=== PATIENT | male | born 1965 | race Caucasian/White ===

== ENCOUNTER 2017-03-16 10:55 | Day surgery (SDC) | payer BC ==
[2017-03-12 16:11] VITALS: BMI 32.6
[2017-03-16 11:16] VITALS: RESP 16; TEMP 98
[2017-03-16] MEDS ORDERED: LIDOCAINE 1% 20 ML VIAL (10MG/ML) FOR IV START INTRADERMA ONE (11:35)
[2017-03-16] MEDS: LACTATED RINGERS 1,000 ML IV SCH ×2 (11:35→12:25)
[2017-03-16] MEDS ORDERED: PROPOFOL 10 MG/ML 20 ML VIAL IV ONE (12:27)
--- NOTE | 2017-03-16 12:43 | P.GSHP ---
History of Present Illness H&P Date: 03/16/17 Chief Complaint: History of colon polyps 's is a 51-year-old male referred from Dr. hsu. Patient had previous colonoscopy 3 years ago. Found have benign adenomatous polyps. He presents today for colonoscopy. Past Medical History Past Medical History: Hypertension Additional Past Medical History / Comment(s): SPONTANEOUS RIGHT PNEUMOTHORAX IN 1990. History of Any Multi-Drug Resistant Organisms: None Reported Additional Past Surgical History / Comment(s): COLONOSCOPY. CHEST TUBE INSERTION. Past Anesthesia/Blood Transfusion Reactions: No Reported Reaction Additional Past Anesthesia/Blood Transfusion Reaction / Comment(s): HAS NEVER HAD GENERAL ANESTHESIA. Smoking Status: Former smoker - Past Family History Brother(s) Family Medical History: Cancer Additional Family Medical History / Comment(s): LIVER CA, BLADDER CANCER Sister(s) Family Medical History: Cancer Additional Family Medical History / Comment(s): BREAST CA Medications and Allergies Home Medications Medication Instructions Recorded Confirmed Type Metoprolol Tartrate [Lopressor] 100 mg PO 0900 01/11/15 03/12/17 History Aspirin 81 mg PO DAILY 03/12/17 03/12/17 History Metoprolol Tartrate [Lopressor] 50 mg PO 2100 03/12/17 03/12/17 History Multivitamin [Men's Multi-Vitamin] 1 each PO DAILY 03/12/17 03/12/17 History Allergies Allergy/AdvReac Type Severity Reaction Status Date / Time No Known Allergies Allergy Verified 03/16/17 11:18 Surgical - Exam Vital Signs Temp Pulse Resp BP Pulse Ox 98.0 F 74 16 166/90 97 03/16/17 11:15 03/16/17 11:15 03/16/17 11:15 03/16/17 11:15 03/16/17 11:15 - General well developed, no distress - Eyes PERRL - ENT normal pinna - Neck no masses - Respiratory normal expansion - Cardiovascular Rhythm: regular - Abdomen Abdomen: soft, non tender Assessment and Plan Plan: History of colon polyps. We'll perform colonoscopy.
--- NOTE | 2017-03-16 12:55 | P.OP ---
Date of Procedure: 03/16/17 Preoperative Diagnosis: History of colon polyps Postoperative Diagnosis: Normal colonoscopy Procedure(s) Performed: Colonoscopy Implants: Anesthesia: MAC Surgeon: Can Verde Pathology: none sent Condition: stable Indications for Procedure: Operative Findings: Description of Procedure: PROCEDURE: The patient was placed on the endoscopy table in the lateral position. Digital rectal examination was performed which revealed no abnormalities. The prostate was symmetrical without nodules. Flexible colonoscope was then placed in the patient's anus and passed throughout the entire colon. The ileocecal valve was visualized. The cecum, ascending, transverse, descending and sigmoid colon were normal. The rectum was normal as well. There were no masses, polyps or diverticula noted in the entire colon. SUMMARY OF FINDINGS: Normal colonoscopy.
[2017-03-16 13:31] VITALS: BP 119/79; PULSE 66
== END 2017-03-16 13:43 | disposition home or self-care (01) ==
LOC: ORWHC2ENDO 10:55
PROVIDERS: ATTEND Surgery
DX: Z12.11 Encounter for screening for malignant neoplasm of colon (principal); Z86.010 Personal history of colon polyps; I10 Essential (primary) hypertension; Z87.891 Personal history of nicotine dependence; Z79.82 Long term (current) use of aspirin; Z79.899 Other long term (current) drug therapy
CPT/HCPCS: J2704; G0105; 45378

== ENCOUNTER 2022-01-06 12:00 | Day surgery (SDC) | payer BC ==
[2022-01-03 08:28] VITALS: BMI 32.6
[~2022-01-06 12:00] MED LIST: LACTATED RINGERS 1,000 ML IV SCH; LIDOCAINE 1% (10MG/ML) FOR IV START INTRADERMA PRN
[2022-01-06 12:54] VITALS: TEMP 97.8
[2022-01-06] MEDS ORDERED: PROPOFOL 10 MG/ML 20 ML VIAL IV ONE (13:35)
--- NOTE | 2022-01-06 13:41 | P.GSHP ---
History of Present Illness H&P Date: 01/06/22 Chief Complaint: History of colon polyps This a 56-year-old male who presents today for colonoscopy. Patient appears history of colon polyps. Past Medical History Past Medical History: Hearing Disorder / Deafness, Hypertension, Sleep Apnea/CPAP/BIPAP Additional Past Medical History / Comment(s): HX SPONTANEOUS RIGHT PNEUMOTHORAX IN 1990. CPAP use. [place] in right ear. History of Any Multi-Drug Resistant Organisms: None Reported Past Surgical History: Ear Surgery Additional Past Surgical History / Comment(s): COLONOSCOPY. CHEST TUBE INSERTION. TUBE IN RIGHT EAR. Past Anesthesia/Blood Transfusion Reactions: No Reported Reaction Additional Past Anesthesia/Blood Transfusion Reaction / Comment(s): HAS NEVER HAD GENERAL ANESTHESIA. Past Psychological History: No Psychological Hx Reported Smoking Status: Former smoker Past Alcohol Use History: Occasional Additional Past Alcohol Use History / Comment(s): STARTED SMOKING AT AGE 15, QUIT IN 1990, SMOKED 1PPD. Past Drug Use History: None Reported - Past Family History Mother Family Medical History: Cancer Additional Family Medical History / Comment(s): LUNG CANCER. Brother(s) Family Medical History: Cancer Additional Family Medical History / Comment(s): LIVER CANCER, BLADDER CANCER. Sister(s) Family Medical History: Cancer Additional Family Medical History / Comment(s): BREAST CANCER. Medications and Allergies Home Medications Medication Instructions Recorded Confirmed Type Metoprolol Tartrate [Lopressor] 100 mg PO HS 01/11/15 01/06/22 History Metoprolol Tartrate [Lopressor] 50 mg PO QAM 03/12/17 01/06/22 History Multivitamin [Men's Multi-Vitamin] 1 each PO DAILY 03/12/17 01/06/22 History Ofloxacin [Ofloxacin 0.3% Otic 5 drops RIGHT EAR BID 01/03/22 01/06/22 History Soln] Allergies Allergy/AdvReac Type Severity Reaction Status Date / Time No Known Allergies Allergy Verified 01/06/22 12:50 Surgical - Exam Vital Signs Temp Pulse Resp BP Pulse Ox 97.8 F 81 17 164/86 98 01/06/22 12:53 01/06/22 12:53 01/06/22 12:53 01/06/22 12:53 01/06/22 12:53 - General well developed, well nourished, no distress - Eyes PERRL - ENT normal pinna - Neck no masses - Respiratory normal expansion - Cardiovascular Rhythm: regular - Abdomen Abdomen: soft, non tender Assessment and Plan Assessment: History of colon polyps. We'll perform colonoscopy.
--- NOTE | 2022-01-06 14:03 | P.OP ---
Date of Procedure: 01/06/22 Preoperative Diagnosis: History of colon polyps Postoperative Diagnosis: Colon polyps Procedure(s) Performed: Colonoscopy Anesthesia: MAC Surgeon: Can Verde Pathology: other (Rectal polyp, transverse colon polyp) Condition: stable Disposition: PACU Description of Procedure: The patient's placed on the endoscopy table in the lateral position. He received IV sedation. Digital rectal exam was performed which revealed no ebonized. Flexible colonoscope was then placed patient anus and passed throu ghout the entire colon. The ileocecal valve was visualized. Cecum appeared normal. The ascending colon all. In the proximal transverse colon polyp was seen was removed with the cold forcep. The remainder the transverse colon and descending colon appeared normal. In the; a few scattered diverticula. In the rectum there was a small polyp seen was removed accommodation of the cold forcep and snare. Copious withdrawn for patient.
[2022-01-06 14:09] VITALS: RESP 16
[2022-01-06 14:26] VITALS: BP 138/90; PULSE 70
== END 2022-01-06 14:36 | disposition home or self-care (01) ==
LOC: ORWHC2ENDO 12:00
PROVIDERS: ATTEND Surgery
DX: Z12.11 Encounter for screening for malignant neoplasm of colon (principal); D12.3 Benign neoplasm of transverse colon; K62.1 Rectal polyp; K57.30 Diverticulosis of large intestine without perforation or abscess without bleeding; Z86.010 Personal history of colon polyps; I10 Essential (primary) hypertension; G47.33 Obstructive sleep apnea (adult) (pediatric); Z87.891 Personal history of nicotine dependence; Z79.899 Other long term (current) drug therapy
CPT/HCPCS: 88305; 45380; 45385; J2704

== ENCOUNTER 2023-12-17 07:49 | Day surgery (SDC) | payer BC ==
[2023-12-15 13:05] VITALS: BMI 31.1
[~2023-12-17 07:49] MED LIST changes: -LACTATED RINGERS 1,000 ML IV SCH
[2023-12-17] MEDS: LACTATED RINGERS 1,000 ML IV SCH (08:16)
[2023-12-17 08:22] VITALS: RESP 16; TEMP 96.8
[2023-12-17] MEDS ORDERED: PROPOFOL 10 MG/ML 20 ML VIAL IV ONE (08:58)
--- NOTE | 2023-12-17 09:01 | P.GSHP ---
History of Present Illness H&P Date: 12/17/23 Chief Complaint: history of colon polyps this is a 58-year-old male with history of colon polyps. Patient presents today for colonoscopy. Past Medical History Past Medical History: Hearing Disorder / Deafness, Hypertension, Sleep Apne a/CPAP/BIPAP Additional Past Medical History / Comment(s): HX SPONTANEOUS RIGHT PNEUMOTHORAX IN 1990. CPAP use. History of Any Multi-Drug Resistant Organisms: None Reported Past Surgical History: Ear Surgery Additional Past Surgical History / Comment(s): COLONOSCOPY. CHEST TUBE INSERTION. TUBE IN RIGHT EAR. Past Anesthesia/Blood Transfusion Reactions: No Reported Reaction Additional Past Anesthesia/Blood Transfusion Reaction / Comment(s): . Past Psychological History: No Psychological Hx Reported Smoking Status: Former smoker Past Alcohol Use History: Occasional Additional Past Alcohol Use History / Comment(s): STARTED SMOKING AT AGE 15, QUIT IN 1990, SMOKED 1PPD. Past Drug Use History: None Reported - Past Family History Mother Family Medical History: Cancer Additional Family Medical History / Comment(s): LUNG CANCER. Brother(s) Family Medical History: Cancer Additional Family Medical History / Comment(s): LIVER CANCER, BLADDER CANCER. Sister(s) Family Medical History: Cancer Additional Family Medical History / Comment(s): BREAST CANCER. Medications and Allergies Home Medications Medication Instructions Recorded Confirmed Type Metoprolol Tartrate [Lopressor] 100 mg PO HS 01/11/15 12/17/23 History Metoprolol Tartrate [Lopressor] 50 mg PO QAM 03/12/17 12/17/23 History Allergies Allergy/AdvReac Type Severity Reaction Status Date / Time No Known Allergies Allergy Verified 12/17/23 08:04 Surgical - Exam Vital Signs Temp Pulse Resp Pulse Ox 96.8 F L 65 16 99 12/17/23 08:07 12/17/23 08:07 12/17/23 08:07 12/17/23 08:07 - General well developed, well nourished, no distress - Eyes PERRL - ENT normal pinna - Neck no masses - Respiratory normal expansion - Cardiovascular Rhythm: regular - Abdomen Abdomen: soft, non tender Assessment and Plan Assessment: history: Loss. We'll perform colonoscopy.
[2023-12-17] MEDS: IV FLUID CONTINUATION 1,000 ML IV ONE (09:21)
--- NOTE | 2023-12-17 09:22 | P.OP ---
Date of Procedure: 12/17/23 Preoperative Diagnosis: history of colon polyps Postoperative Diagnosis: amultiple colon polyps Procedure(s) Performed: ecolonoscopy Anesthesia: MAC Surgeon: Can Verde Pathology: none sent Condition: stable Disposition: PACU Description of Procedure: the patient's placed on the endoscopy table in the lateral position. He received IV sedation. Digital rectal exam performed. The flexible colonoscope was then placed patient in the patient's anus passed throughout the colon. The ileocecal valve was not visualized with tortuosity valve. Several attempts were made to make enter the ileocecal valve was some possible. Scope was withdrawn. In the right colon there was a small polyp was removed accommodation snare and forcep. At the hepatic flexure there was another polyp seen was removed with snare. Scope brought back and there was another polyp seen in the proximal transverse colon which was removed with the snare. Scope was withdrawn the remaining transverse colon and descending colon appeared normal. In the sigmoid colon there is another polyp seen this removed with a forcep. Scope was brought back the rectum this appeared normal. Scope withdrawn for patient.
[2023-12-17 10:13] VITALS: BP 129/78; PULSE 69
== END 2023-12-17 09:51 | disposition home or self-care (01) ==
LOC: ORWHC2ENDO 07:49
PROVIDERS: ATTEND Surgery
DX: Z12.11 Encounter for screening for malignant neoplasm of colon (principal); D12.3 Benign neoplasm of transverse colon; D12.2 Benign neoplasm of ascending colon; I10 Essential (primary) hypertension; G47.33 Obstructive sleep apnea (adult) (pediatric); F10.90 Alcohol use, unspecified, uncomplicated; Z86.010 Personal history of colon polyps; Z87.891 Personal history of nicotine dependence; Z80.1 Family history of malignant neoplasm of trachea, bronchus and lung; Z80.0 Family history of malignant neoplasm of digestive organs; Z80.3 Family history of malignant neoplasm of breast; Z79.899 Other long term (current) drug therapy
CPT/HCPCS: 88305; 45380; 45385; J2704

== ENCOUNTER → 2024-01-21 | Outpatient (CLI) | payer BC ==
[2024-01-21 14:56] LABS: Anion Gap 14.7 mmol/L (4.00-12.00); Carbon Dioxide 25.3 mmol/L (21.6-31.8); Potassium 4.4 mmol/L (3.5-5.5)
[2024-01-21 14:59] LABS: Basophils # (A) 0.05 X 10*3/uL (0.00-0.10); Basophils % (A) 0.8 %; Eosinophils # (A) 0.19 X 10*3/uL (0.04-0.35); Eosinophils % (A) 3.2 %; HGB 14.5 g/dL (13.0-17.0); Lymphocytes % (A) 33.2 %; MCH 28.7 pg (27.0-32.0); MCV 87.1 FL (80.0-97.0); Mean Platelet Volume 10.5 FL (9.5-12.2); Monocytes # (A) 0.56 X 10*3/uL (0.20-1.00); Monocytes % (A) 9.3 %; NRBC Per 100 WBC 0 X 10*3/uL (0.00-0.01); Neutrophils # (A) 3.19 X 10*3/uL (1.80-7.70); Neutrophils % (A) 52.8 %; Platelet Count 212 X 10*3/uL (140-440); RBC 5.05 X 10*6/uL (4.40-5.60); RDW 13.3 % (11.5-14.5); WBC 6.03 X 10*3/uL (4.50-10.00)
== END | disposition home or self-care (01) ==
LOC: LABPAT 09:29
PROVIDERS: ATTEND Surgery
DX: Z01.818 Encounter for other preprocedural examination (principal); C18.9 Malignant neoplasm of colon, unspecified
CPT/HCPCS: 80051; 85025; 86850; 86900; 86901; 93005

== ENCOUNTER 2024-01-25 07:30 | Inpatient (IN) | payer BC ==
[2024-01-21 11:53] VITALS: BMI 31.1
[~2024-01-25 07:30] MED LIST changes: -LIDOCAINE 1% (10MG/ML) FOR IV START INTRADERMA PRN; +metroNIDAZOLE-NS PMX 500 MG in SALINE 1 100ML.BAG IVPB PRN
[2024-01-25] MEDS ORDERED: droPERidol 5 MG/2 ML VIAL IVP PRN (08:37)
[2024-01-25] MEDS ORDERED: LIDOCAINE 1% (10MG/ML) FOR IV START INTRADERMA PRN (08:37)
[2024-01-25] MEDS: IV FLUID CONTINUATION 1,000 ML IV ONE (09:21)
[2024-01-25] MEDS: LACTATED RINGERS 1,000 ML IV SCH (09:30)
[2024-01-25] MEDS: ONDANSETRON 4 MG/2 ML VIAL IVP ONE (09:30)
[2024-01-25] MEDS: DEXAMETHASONE SOD PHOSPHATE 4 MG/ML 1 ML VIAL IV ONE (09:30)
[2024-01-25] MEDS: MIDAZOLAM 2 MG/2 ML VIAL IVP ONE (09:34)
[2024-01-25] MEDS ORDERED: NALOXONE 0.4 MG/ML 1 ML VIAL IV PRN (09:55)
--- NOTE | 2024-01-25 09:55 | P.ANPRN ---
Procedure Note - Anesthesia - Epidural/Spinal Epidural Continuous Time Out Performed: Yes Date of Procedure: 01/25/24 Procedure Start Time: 09:33 Procedure Stop Time: 09:40 Location of Patient: PreOp Indication: Acute Post-Operative Pain, Analgesia, Requested by Surgeon Sedation Type: Sedate with meaningful contact maintained Preparation: Sterile Prep Position: Sitting Catheter: Indwelling Needle Guage: 18 Narrative: Test dose with 4 ml 1.5%lidocaine with Epi. Negative S/S Blood Aspirated: No Pain Paresthesia on Injection Noted: No Events: Uneventful and Well Tolerated
[2024-01-25] MEDS: ACETAMINOPHEN TAB 500 MG TAB PO ONE (10:02)
[2024-01-25] MEDS: ALVIMOPAN 12 MG CAPSULE PO ONE (10:05)
[2024-01-25] MEDS ORDERED: PROPOFOL 10 MG/ML 20 ML VIAL IV ONE (11:41)
[2024-01-25] MEDS ORDERED: SUCCINYLCHOLINE CHLORIDE 200 MG/10 ML VIAL IV ONE (11:41)
[2024-01-25] MEDS ORDERED: SUGAMMADEX SODIUM 200 MG/2 ML SDV IV ONE (11:41)
[2024-01-25] MEDS ORDERED: fentaNYL (PF) 50 MCG/ML 2 ML AMP ONE (11:41)
[2024-01-25] MEDS ORDERED: MIDAZOLAM 2 MG/2 ML VIAL ONE (11:41)
[2024-01-25] MEDS ORDERED: ROCURONIUM 10 MG/ML (5 ML VIAL) IV ONE (11:41)
[2024-01-25] MEDS: LACTATED RINGERS 1,000 ML IV ONE (12:26)
[2024-01-25] MEDS ORDERED: ONDANSETRON 4 MG/2 ML VIAL IVP PRN (13:00)
--- NOTE | 2024-01-25 13:00 | P.OP ---
Date of Procedure: 01/25/24 Preoperative Diagnosis: colon cancer Postoperative Diagnosis: colon cancer Procedure(s) Performed: right hemicolectomy Repair of ventral hernia 4 cm Anesthesia: NANCY Surgeon: Can Verde Estimated Blood Loss (ml): 5 Pathology: other (right hemicolectomy) Condition: stable Disposition: PACU Description of Procedure: the patient's placed on the operating table in the supine position. He received general endotracheal tube anesthesia. His abdomen was prepped and draped usual fashion. A midline skin incision was made. And the abdomen was entered. The patient had a ventral hernia located just above the umbilicus. It measured prostate 4 cm diameter. The abdominal cavity entered. The Bookwalter retractors placed a wound. Then explored. Liver appeared normal. There were no obvious masses palpated in the right or transverse colon. the remainder of the colon appeared normal. At this pointthe white line of Toldt's was divided using left cautery on the right colon was mobilized. The hepatic flexure was mobilized using the Harmonic scissors. And then the omentum was taken off of the transverse colon. The terminal ileum was mobilized. And then the terminal ileum was transected with a GI stapler. And then the distal transverse colon was transected with a GI stapler. Using the LigaSure device the mesentery of the bowel was divided. The specimen sent to pathology. A lbci-cl-sayl functional end-to-end staple anastomosis created using HOLLIS and TA staplers. 3-0 GI silk sutures using a crotch stitch. The abdomen was irrigated there is no bleeding seen. The fascia was then closed loop #1 PDS suture. The hernia was repaired during fascial closure. The skin was stapled. sterile dressings was applied. Patient tolerated procedure well. He was sent to recovery room in stable condition.
[2024-01-25] MEDS: ROPIVACAINE 250 MG, HYDROMORPHONE (PF) 5 MG in SODIUM CHLORIDE 0.9% 200 ML EPIDURAL PRN (13:13)
[2024-01-25] MEDS: HYDROmorphone 0.5 MG/0.5 ML SYRINGE IVP PRN (13:21)
[2024-01-25 15:21] LABS: Basophils # (A) 0.1 k/uL (0-0.2); Basophils % (A) 0 %; Eosinophils % (A) 0 %; HCT 46.2 % (39.0-53.0); HGB 14.7 gm/dL (13.0-17.5); Lymphocytes # (A) 0.8 k/uL (1.0-4.8); Lymphocytes % (A) 5 %; MCH 28.3 pg (25.0-35.0); MCHC 31.9 g/dL (31.0-37.0); MCV 88.6 fL (80.0-100.0); Mean Platelet Volume 8.4; Monocytes # (A) 0.4 k/uL (0-1.0); Monocytes % (A) 2 %; Neutrophils # (A) 14.9 k/uL (1.3-7.7); Neutrophils % (A) 92 %; Platelet Count 212 k/uL (150-450); RBC 5.21 m/uL (4.30-5.90); RDW 13.3 % (11.5-15.5); WBC 16.2 k/uL (3.8-10.6)
[2024-01-25] MEDS: HEPARIN SODIUM,PORCINE 5,000 UNIT/ML 1 ML VIAL SQ SCH (17:24)
[2024-01-25] MEDS: D5-0.45% NACL WITH KCL 20MEQ/L 1,000 ML IV SCH (18:52)
[2024-01-25] MEDS: METOPROLOL TARTRATE 50 MG TAB PO SCH (20:08)
--- NOTE | 2024-01-26 07:47 | P.PN ---
Progress Note - Text Progress Note Date: 01/26/24 Anesthesia Postop day 1 Status post colectomy with epidural day 2 Patient seen and examined. Doing well without complaint. VAS 2 out of 10. No nausea vomiting or pruritus. Ropivacaine 0.1% with Dilaudid 20 mcg/mL at 10 cc an hour. Objective: Vital signs reviewed Lungs: Good chest excursion Abdomen: Appears nondistended Other: Epidural Site Intact without induration. Dressing intact Neuro: Left thigh heavy. Paresthesias left thigh. Assessment: Status post colectomy postop day 1 Plan: Continue current care with your medical management. Anticipate reevaluation tomorrow. Discussed with nurse to decrease rate down to 8 to see if there is improvement in the left lower extremity. If not give our department to call.
[2024-01-26] MEDS: ALVIMOPAN 12 MG CAPSULE PO SCH (08:04)
[2024-01-26] MEDS: METOPROLOL TARTRATE 50 MG TAB PO SCH (08:05)
[2024-01-26 10:41] LABS: African American GFR (CKD) >90 (>60 ml/min/1.73 sqM); Anion Gap 8 mmol/L; Blood Urea Nitrogen 9 mg/dL (9-20); Calcium 8.4 mg/dL (8.4-10.2); Carbon Dioxide 22 mmol/L (22-30); Chloride 105 mmol/L (98-107); Glucose 135 mg/dL (74-99); Non-African American GFR(CKD) >90 (>60 ml/min/1.73 sqM); Potassium 4.1 mmol/L (3.5-5.1); Sodium 135 mmol/L (137-145)
[2024-01-26 10:44] LABS: Basophils % (A) 0 %; Eosinophils # (A) 0.1 k/uL (0-0.7); Eosinophils % (A) 1 %; HCT 37.5 % (39.0-53.0); HGB 12.5 gm/dL (13.0-17.5); Lymphocytes # (A) 1.7 k/uL (1.0-4.8); Lymphocytes % (A) 16 %; MCH 29.5 pg (25.0-35.0); MCHC 33.3 g/dL (31.0-37.0); MCV 88.7 fL (80.0-100.0); Mean Platelet Volume 8.6; Monocytes % (A) 9 %; Neutrophils # (A) 8.2 k/uL (1.3-7.7); Neutrophils % (A) 74 %; Platelet Count 178 k/uL (150-450); RBC 4.23 m/uL (4.30-5.90); RDW 13.3 % (11.5-15.5); WBC 11.1 k/uL (3.8-10.6)
--- NOTE | 2024-01-26 12:48 | CONS ---
CONSULTATION REASON FOR CONSULTATION: Advice regarding hypertension and other medical issues, requested by Surgery. HISTORY OF PRESENT ILLNESS: A 58-year-old gentleman with history of colon cancer, underwent right hemicolectomy as well as repair of ventral hernia by Dr. Verde. There are no history of fever or rigors. No chest pain or palpitation at this time. The blood pressure is well maintained. PAST MEDICAL HISTORY: Reviewed, include hypertension, sleep apnea, spontaneous pneumothorax in 1990, CPAP. Rest of the history and rest of chart is also reviewed. HOME MEDICATIONS: Reviewed, include metoprolol, dose and rest of medications reviewed. ALLERGIES: None. FAMILY HISTORY: History of liver cancer and bladder cancer. SOCIAL HISTORY: Previous history of smoking. REVIEW OF SYSTEMS: A 14-point review is negative except as mentioned earlier. PHYSICAL EXAMINATION: VITAL SIGNS: Pulse 82, blood pressure 132/70, respirations 18. HEENT: Conjunctivae normal. NECK: No jugular venous distention. CARDIOVASCULAR: S1, S2. RESPIRATIONS: Breath sounds diminished at the bases. No rhonchi. No crackles. ABDOMEN: Soft, status post surgery. LEGS: No edema. NERVOUS SYSTEM: Nonfocal. LABORATORY DATA: WBC 11.1. The rest of labs are noted. ASSESSMENT: 1. Status post right hemicolectomy and repair of ventral hernia for colon cancer. 2. Hypertension. 3. Mild hyponatremia. 4. History of sleep apnea, on CPAP. 5. Spontaneous right pneumothorax history remotely. RECOMMENDATIONS AND DISCUSSION: This 58-year-old gentleman with a past medical history of multiple medical problems. At this time, I recommend to continue current management and continue symptomatic treatment. Home medications will be continued and the patient is p.o. DVT prophylaxis. We will follow the patient closely with you. Otherwise, proton pump inhibitors. Incentive spirometry. The patient may be asked to follow with primary physician closely after discharge. MMODL / IJN: [id number] /
--- NOTE | 2024-01-26 14:20 | P.PN ---
Subjective Progress Note Date: 01/26/24 CHIEF COMPLAINT: Colon cancer HISTORY OF PRESENT ILLNESS: Patient is postop day #1 status post right wilber colectomy and repair of ventral hernia 4 cm. Patient reports his pain is controlled. Epidural is in place and has been decreased to 8. He had reported some numbness in the left leg. He denies any nausea or vomiting. He did have a small amount of flatus last night. Afebrile. Mildly tachycardic improved. WBC is down from 16.2-11.1 PHYSICAL EXAM: VITAL SIGNS: Reviewed. GENERAL: Well-developed in no acute distress. ABDOMEN: Soft. Mildly distended. Incisional dressing pulled back. Dressing was saturated with blood. Incision site is clean dry and intact. NEUROLOGIC: Alert and oriented. Cranial nerves II through XII grossly intact. ASSESSMENT: 1. Colon cancer status post right hemicolectomy and repair of ventral hernia PLAN: -Abdominal dressing changed today -Continue epidural for pain control -Continue Wood catheter -Continue IV fluids. Medicine service has decreased IV fluids. -Encourage patient to use incentive spirometer -Encouraged patient to increase activity level -Repeat labs in a.m. -GI prophylaxis Protonix and DVT prophylaxis SC Heparin Physician Filter Press Tender note has been reviewed by physician. Signing provider agrees with the documented findings, assessment, and plan of care. Objective - Vital Signs Vital signs: Vital Signs Temp 98.6 F 01/26/24 07:14 Pulse 82 01/26/24 07:14 Resp 18 01/26/24 07:14 BP 132/74 01/26/24 07:14 Pulse Ox 96 01/26/24 07:14 FiO2 Intake & Output 01/25/24 01/26/24 01/26/24 18:59 06:59 18:59 Intake Total 2049 1500 326.634 Output Total 1075 1900 1800 Balance 975 -400 -1473.366 Weight 94.6 kg Intake: IV 2049 Intake, IV Titration 1500 206.634 Amount D5-0.45% NaCl with KCl 1500 20Meq/l 1,000 ml @ 75 mls /hr IV .[id number] [facility] Rx#: [id number] Ropivacaine 250 mg 206.634 Hydromorphone (Pf) 5 mg In Sodium Chloride 0.9% 200 ml @ Per Protocol EPIDURAL .Q0M PRN Rx#: [id number] Oral 120 Output: Urine 1050 1900 1800 Estimated Blood Loss 25 Other: Voiding Method Indwelling Catheter Indwelling Catheter - Labs CBC & Chem 7: 01/26/24 09:56 01/26/24 09:56 Labs: Abnormal Lab Results - Last 24 Hours (Table) 01/25/24 01/26/24 01/26/24 Range/Units 14:59 09:56 09:56 WBC 16.2 H 11.1 H (3.8-10.6) k/uL RBC 4.23 L (4.30-5.90) m/uL Hgb 12.5 L (13.0-17.5) gm/dL Hct 37.5 L (39.0-53.0) % Neutrophils # 14.9 H 8.2 H (1.3-7.7) k/uL Lymphocytes # 0.8 L (1.0-4.8) k/uL Sodium 135 L (137-145) mmol/L Creatinine 0.63 L (0.66-1.25) mg/dL Glucose 135 H (74-99) mg/dL
[2024-01-27] MEDS: PANTOPRAZOLE 40 MG TABLET PO SCH (06:12)
--- NOTE | 2024-01-27 06:57 | P.PN ---
Progress Note - Text Progress Note Date: 01/27/24 Postoperative day #2 status post colectomy ,epidural catheter placed for postoperative analgesia, patient doing well epidural site okay, patient currently on combination of epidural infusion solution of Ropivacaine 0.0625% and Dilaudid 20 g per mL the infusion rate at 8 ml per hour , patient had no motor deficit epidural site okay , vital signs stable ,VAS 1 /10 , Assessment and plan= post operative day #2 patient doing well ,pain well controlled , there is no anesthesia related complications
[2024-01-27 08:41] LABS: Basophils # (A) 0.04 X 10*3/uL (0.00-0.10); Basophils % (A) 0.5 %; Eosinophils # (A) 0.14 X 10*3/uL (0.04-0.35); Eosinophils % (A) 1.7 %; HGB 11.5 g/dL (13.0-17.0); Lymphocytes # (A) 2.03 X 10*3/uL (0.90-5.00); Lymphocytes % (A) 24.4 %; MCHC 32.9 g/dL (32.0-37.0); MCV 88.2 FL (80.0-97.0); Mean Platelet Volume 10.8 FL (9.5-12.2); Monocytes # (A) 0.97 X 10*3/uL (0.20-1.00); Monocytes % (A) 11.7 %; NRBC Per 100 WBC 0 X 10*3/uL (0.00-0.01); Neutrophils # (A) 5.12 X 10*3/uL (1.80-7.70); Neutrophils % (A) 61.5 %; Platelet Count 170 X 10*3/uL (140-440); RBC 3.97 X 10*6/uL (4.40-5.60); RDW 13.2 % (11.5-14.5); WBC 8.32 X 10*3/uL (4.50-10.00)
[2024-01-27 08:56] LABS: ALT 14 U/L (10-49); AST 15 U/L (14-35); Albumin 3.8 g/dL (3.8-4.9); Albumin/Globulin Ratio 1.81 Ratio (1.60-3.17); Alkaline Phosphatase 56 U/L (41-126); BUN/Creat Ratio 9.57 Ratio (12.00-20.00); Blood Urea Nitrogen 6.7 mg/dL (9.0-27.0); Calcium 8.1 mg/dL (8.7-10.3); Carbon Dioxide 21.9 mmol/L (21.6-31.8); Chloride 102 mmol/L (96-109); Globulin 2.1 g/dL (1.6-3.3); Glucose 102 mg/dL (70-110); Potassium 4.1 mmol/L (3.5-5.5); Sodium 136 mmol/L (135-145); Total Bilirubin 1.2 mg/dL (0.3-1.2); Total Protein 5.9 g/dL (6.2-8.2)
--- NOTE | 2024-01-27 13:02 | P.PN ---
Subjective Progress Note Date: 01/27/24 CHIEF COMPLAINT: Colon cancer HISTORY OF PRESENT ILLNESS: Patient is postop day #2 status post right wilber colectomy and repair of ventral hernia 4 cm. Patient reports his pain is controlled. He has been up and ambulating in the hallway. He is having flatus. Afebrile. WBC is down from 11.1-8.32 PHYSICAL EXAM: VITAL SIGNS: Reviewed. GENERAL: Well-developed in no acute distress. ABDOMEN: Soft. Mildly distended. Incisional dressing clean dry and intact NEUROLOGIC: Alert and oriented. Cranial nerves II through XII grossly intact. ASSESSMENT: 1. Colon cancer status post right hemicolectomy and repair of ventral hernia PLAN: -Follow-up on pathology results -Advance diet to full liquids -Plan for epidural and Wood catheter to be discontinued tomorrow -Encourage patient to ambulate -Encourage patient to use incentive spirometer -Discontinue IV fluids -GI prophylaxis Protonix and DVT prophylaxis SC Heparin Physician Wood Model Builder note has been reviewed by physician. Signing provider agrees with the documented findings, assessment, and plan of care. Objective - Vital Signs Vital signs: Vital Signs Temp 98.2 F 01/27/24 07:27 Pulse 87 01/27/24 07:27 Resp 19 01/27/24 07:27 BP 137/74 01/27/24 07:27 Pulse Ox 97 01/27/24 07:27 FiO2 Intake & Output 01/26/24 01/27/24 01/27/24 18:59 06:59 18:59 Intake Total 326.634 211.333 Output Total 2350 1900 Balance -2022.366 -1900 211.333 Intake: Intake, IV Titration 206.634 211.333 Amount Ropivacaine 250 mg 206.634 211.333 Hydromorphone (Pf) 5 mg In Sodium Chloride 0.9% 200 ml @ Per Protocol EPIDURAL .Q0M PRN Rx#: [id number] Oral 120 Output: Urine 2350 1900 Other: Voiding Method Indwelling Catheter Indwelling Catheter Indwelling Catheter - Labs CBC & Chem 7: 01/27/24 05:02 01/27/24 05:02 Labs: Abnormal Lab Results - Last 24 Hours (Table) 01/27/24 01/27/24 Range/Units 05:02 05:02 RBC 3.97 L (4.40-5.60) X 10*6/uL Hgb 11.5 L (13.0-17.0) g/dL Hct 35.0 L (39.6-50.0) % Anion Gap 12.10 H (4.00-12.00) mmol/L BUN 6.7 L (9.0-27.0) mg/dL BUN/Creatinine Ratio 9.57 L (12.00-20.00) Ratio Calcium 8.1 L (8.7-10.3) mg/dL Total Protein 5.9 L (6.2-8.2) g/dL
--- NOTE | 2024-01-27 14:29 | XR ---
EXAMINATION TYPE: XR chest 1V portable DATE OF EXAM: 01/27/2024 2:16 PM CLINICAL INDICATION:Male, 58 years old with history of chf; COMPARISON: None TECHNIQUE: XR chest 1V portable Frontal view of the chest. FINDINGS: Lungs/Pleura: There is no evidence of pleural effusion, focal consolidation, or pneumothorax. Pulmonary vascularity: Unremarkable. Heart/mediastinum: Cardiomediastinal silhouette is unremarkable. Musculoskeletal: No acute osseous pathology. IMPRESSION: No acute cardiopulmonary disease/process.
--- NOTE | 2024-01-27 23:19 | PN ---
PROGRESS NOTE DATE OF SERVICE: 01/27/2024 SUBJECTIVE: This is a 58-year-old gentleman who was admitted with right hemicolectomy, is being closely monitored. The patient has abdominal distention. No chest pain, no palpitations, no fever. OBJECTIVE: VITAL SIGNS: Pulse 87, blood pressure 130/70, respirations 19. HEENT: Conjunctivae normal. NECK: No jugular venous distention. CARDIOVASCULAR: S1, S2. RESPIRATIONS: Breath sounds are diminished in the bases. ABDOMEN: Soft, some mild diffuse distention status post surgery. LABS: White count normal 8.32, rest of the labs are noted. ASSESSMENT: 1. Status post right hemicolectomy and repair of ventral hernia for colon cancer. 2. Hypertension. 3. Mild hyponatremia. 4. History of sleep apnea, on CPAP. 5. Spontaneous right pneumothorax history, remote. RECOMMENDATIONS: Recommended to continue current management, continue symptomatic treatment. I have also recommended a chest x-ray to ensure normalcy. Repeat labs. Further recommendations to follow. MMODL / IJN: [id number] /
[2024-01-28] MEDS ORDERED: HYDROcodone/APAP 5-325MG 1 EACH TAB PO PRN (08:10)
[2024-01-28] MEDS ORDERED: HYDROmorphone 1 MG/ML 1 ML SYRINGE IVP PRN (08:10)
[2024-01-28 08:50] LABS: Basophils # (A) 0.04 X 10*3/uL (0.00-0.10); Basophils % (A) 0.5 %; Eosinophils # (A) 0.26 X 10*3/uL (0.04-0.35); Eosinophils % (A) 3.5 %; HCT 35.4 % (39.6-50.0); HGB 11.8 g/dL (13.0-17.0); Lymphocytes # (A) 2.03 X 10*3/uL (0.90-5.00); Lymphocytes % (A) 27.7 %; MCH 29.1 pg (27.0-32.0); MCHC 33.3 g/dL (32.0-37.0); MCV 87.2 FL (80.0-97.0); Mean Platelet Volume 10.3 FL (9.5-12.2); Monocytes # (A) 0.88 X 10*3/uL (0.20-1.00); NRBC Per 100 WBC 0 X 10*3/uL (0.00-0.01); Neutrophils % (A) 55.9 %; Platelet Count 183 X 10*3/uL (140-440); RBC 4.06 X 10*6/uL (4.40-5.60); RDW 12.8 % (11.5-14.5); WBC 7.34 X 10*3/uL (4.50-10.00)
--- NOTE | 2024-01-28 08:50 | P.PN ---
Progress Note - Text Progress Note Date: 01/28/24 This is postop day #3 status post colectomy. The patient has very good control of his pain however he does feel numbness in the left thigh that started right after surgery as he states. The numbness fluctuates in intensity depending on the activities that he does. The numbness improves with movement, he still is able to ambulate with a walker. the patient has been getting 0.0625% ropivacaine with 20 mics / mL Dilaudid at a 8 mls an hour. By physical exam he is alert oriented 3 in no apparent distress sitting in a bedside chair. There is mild weakness in the left hip flexion however the rest of the muscle strength exam of the lower extremities is normal and symmetrical. We will plan on taking the epidural catheter out today and for that we will hold his morning dose of heparin however he can resume his heparin at 4 PM as scheduled. We will follow up on the patient tomorrow to check on the status of the left anterior thigh numbness.
[2024-01-28 09:10] LABS: BUN/Creat Ratio 8.38 Ratio (12.00-20.00); Blood Urea Nitrogen 6.7 mg/dL (9.0-27.0); Chloride 100 mmol/L (96-109); Glucose 95 mg/dL (70-110); Potassium 4.1 mmol/L (3.5-5.5); Sodium 137 mmol/L (135-145)
[2024-01-28 09:11] LABS: Calcium 8.5 mg/dL (8.7-10.3)
--- NOTE | 2024-01-28 23:37 | PN ---
PROGRESS NOTE DATE OF SERVICE: 01/28/2024 SUBJECTIVE: This is a 58-year-old gentleman, who was admitted after right hemicolectomy, is improving significantly. No chest pain. No palpitations. No fever. Chest x-ray is normal. OBJECTIVE: VITAL SIGNS: Pulse is 92, blood pressure 150/70, respirations 17. CHEST: Clear to auscultation. CARDIOVASCULAR: S1, S2. ABDOMEN: Soft, status post surgery. LABORATORY DATA: Hemoglobin 11.8. ASSESSMENT: 1. Status post right hemicolectomy as well as repair of ventral hernia for colon cancer. 2. Hypertension. 3. Mild hyponatremia. 4. History of sleep apnea, on CPAP. 5. Spontaneous right pneumothorax history, remote. RECOMMENDATIONS: Recommended to continue current management, continue symptomatic treatment. Chest x- ray is normal. Continue the incentive spirometry. Closely follow with Surgery. Further recommendations to follow. MMODL / IJN: [id number] /
--- NOTE | 2024-01-29 02:52 | PN ---
PROGRESS NOTE DATE OF SERVICE: 01/28/2024 CHIEF COMPLAINT: Colon cancer. HISTORY OF PRESENT ILLNESS: The patient is postop day #3 status post right hemicolectomy and repair of ventral hernia. Epidural and Wood catheter to be discontinued today. Abdominal pain is controlled. He denies any nausea or vomiting. He is having flatus. No bowel movement. Tolerating full liquids. Afebrile. WBC is 7.34. PHYSICAL EXAMINATION: ABDOMEN: Soft. Nondistended. Incisional dressing clean, dry, and intact. ASSESSMENT: Colon cancer, status post right hemicolectomy and repair of ventral hernia. Dr. Verde reviewed pathology results with the patient and it was negative for any malignancy. PLAN: Continue full liquid diet. Discontinue epidural and Wood catheter. Encourage patient to ambulate. Encourage patient to use incentive spirometer, continue GI and DVT prophylaxis. [place] and IV Dilaudid added for pain management. MMODL / IJN: [id number] /
--- NOTE | 2024-01-29 14:49 | P.DS ---
Providers Date of admission: 01/25/24 08:46 Expected date of discharge: 01/29/24 Attending physician: Can Verde Consults: 01/25/24 13:00 Consult Physician Routine Consulting Provider: Tamara Kaba Consult Reason/Comments: medical management Do you want consulting provider notified?: Yes Primary care physician: [facility] Course: this is a 58-year-old male who underwent right colectomy for colon cancer. Patient did well postoperatively. Please hospital chart for details. Procedures: right colectomy Patient Condition at Discharge: Good Plan - Discharge Summary Discharge Rx Participant: No New Discharge Prescriptions: New Ibuprofen [Motrin] 600 mg PO Q6HR PRN #40 tab PRN Reason: Pain Acetaminophen Tab [Tylenol] 325 mg PO Q6H 10 Days #30 tab No Action Metoprolol Tartrate [Lopressor] 100 mg PO QAM Metoprolol Tartrate [Lopressor] 50 mg PO HS Multivit-Mins/Iron/Folic/Lycop [Centrum Men's Tablet] 1 each PO DAILY Ascorbic Acid [Vitamin C] 500 mg PO DAILY Discharge Medication List Metoprolol Tartrate [Lopressor] 100 mg PO QAM 01/11/15 [History] Metoprolol Tartrate [Lopressor] 50 mg PO HS 03/12/17 [History] Ascorbic Acid [Vitamin C] 500 mg PO DAILY 01/22/24 [History] Multivit-Mins/Iron/Folic/Lycop [Centrum Men's Tablet] 1 each PO DAILY 01/22/24 [History] Acetaminophen Tab [Tylenol] 325 mg PO Q6H 10 Days #30 tab 01/29/24 [Rx] Ibuprofen [Motrin] 600 mg PO Q6HR PRN #40 tab 01/29/24 [Rx]
[2024-01-29 16:09] VITALS: BP 154/79; PULSE 68; RESP 16; TEMP 98.2
--- NOTE | 2024-01-29 23:31 | PN ---
PROGRESS NOTE DATE OF SERVICE: 01/29/2024 SUBJECTIVE: This is a 58-year-old gentleman, who was admitted with right hemicolectomy, is improving significantly. No chest pain. No palpitations. No fever. OBJECTIVE: VITAL SIGNS: Pulse is 78, blood pressure 130/70, respirations 18. CHEST: Clear to auscultation. CARDIOVASCULAR: S1, S2. ABDOMEN: Soft, status post surgery. LABORATORY DATA: Reviewed. ASSESSMENT: 1. Status post right hemicolectomy as well as repair of ventral hernia for colon cancer. 2. Hypertension. 3. Mild hyponatremia, improved. 4. Sleep apnea, on CPAP. 5. Spontaneous right pneumothorax history, remote. RECOMMENDATIONS AND DISCUSSION: Recommended to continue current management, continue symptomatic treatment. Medically stable. Continue incentive spirometry. Rest of recommendations per Surgery. Follow up with primary physician after discharge. MMPATTIL / IGNACION: [id number] /
== END 2024-01-29 19:05 | disposition home or self-care (01) | DRG 330 ==
LOC: EDSTATUS 08:45 → 2ORMAIN 08:46 → 4SSUR 16:32
PROVIDERS: ADMIT Surgery; ATTEND Surgery
PROC: 0WQF0ZZ Repair Abdominal Wall, Open Approach (ICD-10-PCS; 2024-01-25)
PROC: 0DTF0ZZ Resection of Right Large Intestine, Open Approach (ICD-10-PCS; principal; 2024-01-25 10:45)
DX: C18.7 Malignant neoplasm of sigmoid colon (principal); E87.1 Hypo-osmolality and hyponatremia; K43.9 Ventral hernia without obstruction or gangrene; G47.30 Sleep apnea, unspecified; I10 Essential (primary) hypertension; R00.0 Tachycardia, unspecified; J43.9 Emphysema, unspecified; Z86.010 Personal history of colon polyps
CPT/HCPCS: 71045; 80048; 80053; 85025; 88305; 88309

== ENCOUNTER → 2025-01-31 | Outpatient (CLI) | payer BC ==
[2025-01-31 15:03] LABS: HCT 42.4 % (39.6-50.0); HGB 13.5 g/dL (13.0-17.0); MCH 27.7 pg (27.0-32.0); MCHC 31.8 g/dL (32.0-37.0); MCV 87.1 FL (80.0-97.0); NRBC Per 100 WBC 0 X 10*3/uL (0.00-0.01); Platelet Count 210 X 10*3/uL (140-440); RBC 4.87 X 10*6/uL (4.40-5.60); RDW 13.5 % (11.5-14.5); WBC 7.29 X 10*3/uL (4.50-10.00)
== END | disposition home or self-care (01) ==
LOC: LABWHC1 07:48
PROVIDERS: ATTEND Surgery
DX: Z01.818 Encounter for other preprocedural examination (principal); K43.2 Incisional hernia without obstruction or gangrene
CPT/HCPCS: 36415; 85027; 86850; 86900; 86901; 93005

== ENCOUNTER 2025-02-14 05:36 | Day surgery (SDC) | payer BC ==
[2025-02-14] MEDS: IV FLUID CONTINUATION 1,000 ML IV ONE ×2 (06:05→08:52)
[2025-02-14] MEDS: ACETAMINOPHEN TAB 500 MG TAB PO PRN (06:53)
[2025-02-14] MEDS: DEXAMETHASONE SOD PHOSPHATE 4 MG/ML 1 ML VIAL IV ONE (06:53)
[2025-02-14] MEDS: ONDANSETRON 4 MG/2 ML VIAL IVP ONE (06:53)
[2025-02-14] MEDS: LACTATED RINGERS 1,000 ML IV SCH (06:54)
[2025-02-14] MEDS: HEPARIN SODIUM,PORCINE 5,000 UNIT/ML 1 ML VIAL SQ PRN (07:00)
[2025-02-14] MEDS ORDERED: PROPOFOL 10 MG/ML 20 ML VIAL IV ONE (07:31)
[2025-02-14] MEDS ORDERED: LIDOCAINE 1% INJ 10MG/ML (20 ML MDV) ONE (07:31)
[2025-02-14] MEDS ORDERED: HYDROmorphone (PF) 1 MG/ML ONE (07:31)
[2025-02-14] MEDS ORDERED: SUCCINYLCHOLINE CHLORIDE 200 MG/10 ML VIAL IV ONE (07:31)
[2025-02-14] MEDS ORDERED: MIDAZOLAM 2 MG/2 ML VIAL ONE (07:31)
[2025-02-14] MEDS ORDERED: ROCURONIUM 10 MG/ML (5 ML VIAL) IV ONE (07:31)
[2025-02-14] MEDS ORDERED: GLYCOPYRROLATE 0.2 MG/ML 2 ML VIAL ONE (07:31)
[2025-02-14] MEDS ORDERED: KETOROLAC 15 MG/ML 1 ML VIAL ONE (07:31)
[2025-02-14] MEDS ORDERED: fentaNYL (PF) 50 MCG/ML 2 ML AMP ONE (07:31)
[2025-02-14] MEDS ORDERED: KETAMINE HCL IN 0.9 % NACL 50 MG/5 ML SYRINGE ONE (07:31)
[2025-02-14] MEDS: BUPIVACAINE (PF) 0.5% 30 ML VIAL SQ ONE (07:57)
[2025-02-14 09:12] VITALS: TEMP 97.9
--- NOTE | 2025-02-14 09:15 | P.OP ---
Date of Procedure: 02/14/25 Preoperative Diagnosis: Incisional hernia Postoperative Diagnosis: Incisional hernia Procedure(s) Performed: Laparoscopic robotic cyst repair of incisional hernia Transversus abdominis plane block Anesthesia: NANCY Surgeon: Can Verde Estimated Blood Loss (ml): 5 Pathology: none sent Condition: stable Disposition: PACU Operative Findings: Incisional hernia 12 x 8 cm Description of Procedure: The patient was placed on the operating table in the supine position. He received general anesthesia. His abdomen was prepped and draped usual fashion. Using a 5 mm optical trocar under direct visualization the peritoneal cavity was entered in the left upper quadrant. The abdomen was then insufflated. The laparoscope was placed back into the perineal cavity. Next a 8 mm robotic trocar was placed in the left lower quadrant and a 12 mm robotic trocar was placed in the left lateral position. The original 5 mm trocar was exchanged for a 8 mm robotic trocar. The patient's placed in the left side up position. And the patient was docked to the robot. A four-quadrant transversus abdominis plane block was performed with 1% local Xylocaine. The incisional hernia was visualized. Using hook cautery the peritoneum over the incisional hernia was excised. The fascial opening was repaired using 0V LOC suture. Next a piece of 11 cm round ventral light ST mesh was placed into the. Cavity and secured with 2 OV lock suture. The patient was undocked the robot. The needles were retrieved. The fascia of the 12 mm trocar site was closed with 0 Ethibond suture. Skin was closed interrupted 3-0 Monocryl suture. Dermabond dressings was applied. Patient tolerated procedure well and was sent to recovery room stable condition.
[2025-02-14] MEDS: HYDROmorphone 0.5 MG/0.5 ML SYRINGE IVP PRN (09:25)
[2025-02-14 10:53] VITALS: BP 124/74; PULSE 70; RESP 16
== END 2025-02-14 12:40 | disposition home or self-care (01) ==
LOC: OR 05:36
PROVIDERS: ATTEND Surgery
DX: K43.2 Incisional hernia without obstruction or gangrene (principal); I10 Essential (primary) hypertension; Z79.899 Other long term (current) drug therapy
CPT/HCPCS: 49593; S2900; 86850; 86900; 86901